=== PATIENT | female | born 1975 | race Caucasian/White ===

== ENCOUNTER → 2017-07-09 | Outpatient (CLI) | payer MEDICAID | LOC: FIMAGING 10:42 | PROVIDERS: ATTEND Obstetrics & Gynecology | DX: O09.521 Supervision of elderly multigravida, first trimester (principal); Z3A.12 12 weeks gestation of pregnancy ==

== ENCOUNTER → 2017-08-05 | Outpatient (CLI) | payer MEDICAID | LOC: FIMAGING 09:20 | PROVIDERS: ATTEND Obstetrics & Gynecology Maternal & Fetal Medicine | PROC: 10903ZU Drainage of Amniotic Fluid, Diagnostic from Products of Conception, Percutaneous Approach (ICD-10-PCS; principal; 2017-08-05) | DX: O09.522 Supervision of elderly multigravida, second trimester (principal); Z3A.16 16 weeks gestation of pregnancy | CPT/HCPCS: 82106-90 ==

== ENCOUNTER → 2017-09-17 | Outpatient (CLI) | payer MEDICAID | LOC: FIMAGING 09:56 | PROVIDERS: ATTEND Obstetrics & Gynecology | DX: O09.522 Supervision of elderly multigravida, second trimester (principal); Z3A.22 22 weeks gestation of pregnancy ==

== ENCOUNTER 2018-01-19 08:00 | Inpatient (IN) | payer MEDICAID ==
[2018-01-19] MEDS ORDERED: TERBUTALINE SULFATE 1 MG/ML VIAL ONE (12:36)
[2018-01-19] MEDS ORDERED: LIDOCAINE 1% 300 MG/30 ML SDV ONE (12:36)
[2018-01-19] MEDS ORDERED: AMMONIA AROMATIC 1 EACH AMP IH ONE (12:36)
[2018-01-19] MEDS ORDERED: OLIVE OIL 118 ML BTL ONE (12:36)
[2018-01-19] MEDS ORDERED: OXYTOCIN 10 UNIT/ML VIAL ONE (12:37)
[2018-01-19] MEDS ORDERED: OXYTOCIN 20 UNIT in LR 1,000 ML IV ONE (12:37)
[2018-01-19] MEDS ORDERED: MISOPROSTOL 200 MCG TAB ONE (12:37)
[2018-01-19] MEDS ORDERED: OXYTOCIN/RINGERS LACTATE 1,000 ML IV PRN (13:53)
[2018-01-19] MEDS ORDERED: AMMONIA AROMATIC 1 EACH AMP IH PRN (13:53)
[2018-01-19] MEDS ORDERED: LIDOCAINE 1% 300 MG/30 ML SDV SC PRN (13:53)
[2018-01-19] MEDS ORDERED: EPSOM SALT 454 GM TP PRN (13:53)
[2018-01-19] MEDS ORDERED: MISOPROSTOL 200 MCG TAB PO PRN (13:53)
[2018-01-19] MEDS ORDERED: OLIVE OIL 118 ML BTL MISC PRN (13:53)
[2018-01-19] MEDS ORDERED: IBUPROFEN 600 MG TAB PO PRN (13:53)
[2018-01-19] MEDS ORDERED: TERBUTALINE SULFATE 1 MG/ML VIAL IV PRN (13:53)
[2018-01-19] MEDS ORDERED: OXYTOCIN 10 UNIT/ML VIAL IM ONE (13:56)
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
--- NOTE | 2018-01-19 20:18 | OBPROG ---
Labor Progress Note Assessment/Plan: Assessment: FHT's 130-140's without decels noted. Protracted labor pattern; inadequate contractions Plan: Reviewed options including ambulating, nipple stimulation, change of scenery, AROM, pt asked about pain medication, and medication to augment labor. Pt would plans to go outside to walk and try other tricks to augment labor. May consider AROM if not effective. Strongly desires avoiding medical intervention if at all possible. 01/19/18 20:15 Subjective/Intrapartum Course: 01/19/18 1715 Contractions have spaced out and are not as strong. Pt was able to rest. Requesting VE Objective: Cervix very soft and stretchy; BBOW present. - SVE Dilation (cm): 8 Effacement (%): 100 Station: -1 Membranes: Intact - Contraction Pattern Assessment Current Contraction Pattern: Irregular Oxytocin Orders Assessment - Pre-Induction/Augmentation Assessment Gestational Age: 40 week(s) and 3 day(s) ICD10 Worksheet Patient Problems: Problems Problem Status Onset Advanced maternal age in multigravida Acute Prolonged labor Acute - ICD10 Problem Qualifiers (1) Prolonged labor (2) Advanced maternal age in multigravida Qualifiers: Trimester: unspecified trimester Qualified Code(s): O09.529 - Supervision of elderly multigravida, unspecified trimester
[2018-01-20 00:17] LABS: PLATELET COUNT 166 10^3/uL (150-400)
--- NOTE | 2018-01-20 00:18 | OBPROG ---
Labor Progress Note Assessment/Plan: Assessment: FHT's 130-140's without decels noted. Protracted labor pattern; inadequate contractions Protracted labor; inadequate contractions. FHT 130-140's Plan: Reviewed options including ambulating, nipple stimulation, change of scenery, AROM, pt asked about pain medication, and medication to augment labor. Pt would plans to go outside to walk and try other tricks to augment labor. May consider AROM if not effective. Strongly desires avoiding medical intervention if at all possible. 01/19/18 20:15 01/20/18 00:16 1) Pt would like to proceed with epidural and pitocin augmentation. Reviewed all risks versus benefits of proceeding including what the procedure entailed. 2) Dr Ruiz updated regarding status prior and agreed that the plan to augment prior to deciding to move to csection Subjective/Intrapartum Course: 01/19/18 1715 Contractions have spaced out and are not as strong. Pt was able to rest. Requesting VE 01/20/18 00:14 Contractions have strength and frequency have spaced out and pt had requested help. After assessing and finding cervix present again and ant lip reviewed options including continuing; getting an epidural and starting pitocin augmentation, or proceeding to a csection. She requested time to talk with her support people. - SVE Dilation (cm): 8 Effacement (%): 100 Station: -2 Membranes: AROM Amniotic Fluid Color: Clear - Contraction Pattern Assessment Current Contraction Pattern: Irregular Oxytocin Orders Assessment - Pre-Induction/Augmentation Assessment Gestational Age: 40 week(s) and 3 day(s) ICD10 Worksheet Patient Problems: Problems Problem Status Onset Advanced maternal age in multigravida Acute Prolonged labor Acute - ICD10 Problem Qualifiers (1) Prolonged labor (2) Advanced maternal age in multigravida Qualifiers: Trimester: unspecified trimester Qualified Code(s): O09.529 - Supervision of elderly multigravida, unspecified trimester
[2018-01-20] MEDS: LR 1,000 ML IV PRN ×2 (00:24→02:23)
[2018-01-20] MEDS ORDERED: BUPIVACAINE 0.25% 30 ML SDV ONE (00:40)
[2018-01-20] MEDS ORDERED: PHENYLEPHRINE HCL 100 MCG/ML SYR ONE (00:40)
--- NOTE | 2018-01-20 00:43 | PREANESOB ---
Obstetric Pre-Anesthesia Info - General Info Proposed Procedure: ÁNGEL : 2 Para: 0 STUART: 01/16/18 Gestational Age: 40 week(s) and 3 day(s) - Info Status: Full Term FHR Pattern: Reassuring - Labor Status Cervical Dilation per last OB SVE: 9 Station per last OB SVE: -2 Amniotic Fluid Color: Clear Pitocin: In Use Indications for Labor Analgesia: Pain Control Labor Epidural: Proposed Anesthesia Allergies/Adverse Reactions: Allergy/AdvReac Type Severity Reaction Status Date / Time acetaminophen [From Vicodin] Allergy Mild Verified 01/19/18 09:12 hydrocodone [From Vicodin] Allergy Mild Verified 01/19/18 09:12 Penicillins Allergy Unknown Verified 01/19/18 09:12 Home Medications: Medication Instructions Recorded Acyclovir [Zovirax 200 mg (*)] 200 mg PO PRN 01/19/18 Ferrous Sulfate [Iron] 325 mg PO DAILY 01/19/18 Dha 1 tab PO DAILY 01/19/18 Visit Medications: Generic Name Dose Route Start Last Admin Trade Name Derrickq PRN Reason Stop Dose Admin Ammonia (Aromatic Spirit) 1 each 01/19/18 13:53 Ammonia Aromatic IH 01/29/18 13:52 ONCE PRN Fainting Lactated Ringer's 1,000 mls @ 0 mls/hr 01/19/18 13:53 01/20/18 00:24 Lr IV 01/20/18 13:52 1,000 mls PRN PRN Administration SEE PROTOCOL CONDITIONS Protocol Per Protocol Oxytocin/Lactated Ringer's 1,000 mls @ 0 mls/hr 01/19/18 13:53 Pitocin 20 Units/Lr (Premix) IV PRN PRN Post bleeding As Directed Ibuprofen 600 mg 01/19/18 13:53 Motrin PO ONCE PRN post , pain Lidocaine HCl 300 mg 01/19/18 13:53 Lidocaine Hcl 1% SC 07/18/18 13:52 ONCE PRN episiotomy Magnesium Sulfate 454 gm 01/19/18 13:53 Epsom Salt TP 07/18/18 13:52 Q1H PRN perineal discomfort Misoprostol 800 - 1,000 mcg 01/19/18 13:53 Cytotec PO 07/18/18 13:52 ONCE PRN Vaginal Atony/Bleeding [place] Oil 118 ml 01/19/18 13:53 Sweet Oil MISC 07/18/18 13:52 ONCE PRN perineal massage Terbutaline Sulfate 0.25 mg 01/19/18 13:53 Brethine IV 07/18/18 13:52 ONCE PRN Tachysystole Discontinued Medications Generic Name Dose Route Start Last Admin Trade Name Jamaal PRN Reason Stop Dose Admin Ammonia (Aromatic Spirit) Confirm 01/19/18 12:36 Ammonia Aromatic Administered 01/19/18 12:37 Dose 1 each IH .STK-MED ONE Bupivacaine HCl Confirm 01/20/18 00:40 Sensorcaine 0.25% Sdv Administered 01/20/18 00:41 Dose 30 ml .ROUTE .STK-MED ONE Lidocaine HCl Confirm 01/19/18 12:36 Lidocaine Hcl 1% Administered 01/19/18 12:37 Dose 300 mg .ROUTE .STK-MED ONE Misoprostol Confirm 01/19/18 12:37 Cytotec Administered 01/19/18 12:38 Dose 1,000 mcg .ROUTE .STK-MED ONE [place] Oil Confirm 01/19/18 12:36 Sweet Oil Administered 01/19/18 12:37 Dose 118 ml .ROUTE .STK-MED ONE Oxytocin Confirm 01/19/18 12:37 Pitocin Administered 01/19/18 12:38 Dose 40 unit .ROUTE .STK-MED ONE Oxytocin 10 unit 01/19/18 13:56 Pitocin IM 01/19/18 13:57 ONCE ONE Phenylephrine HCl Confirm 01/20/18 00:40 Neosynephrine Administered 01/20/18 00:41 Dose 1,000 mcg .ROUTE .STK-MED ONE Terbutaline Sulfate Confirm 01/19/18 12:36 Brethine Administered 01/19/18 12:37 Dose 1 mg .ROUTE .STK-MED ONE - Vital Signs Height/Weight (Nursing): Height 165.1 cm Weight 68.039 kg Labs: 01/19/18 13:53
[2018-01-20] MEDS ORDERED: OXYTOCIN 10 UNIT/ML VIAL IV ONE (01:21)
--- NOTE | 2018-01-20 01:51 | OBDEL ---
Info Type: Vaginal Presentation at Delivery: Vertex L&D Analgesia/Anesthesia Type: None GBS+: No Intrapartum Medications: Generic Name Dose Route Start Last Admin Trade Name Freq PRN Reason Stop Dose Admin Lactated Ringer's 1,000 mls @ 0 mls/hr 01/19/18 13:53 01/20/18 00:24 Lr IV 01/20/18 13:52 1,000 mls PRN PRN Administration SEE PROTOCOL CONDITIONS Protocol Per Protocol Lidocaine HCl 300 mg 01/19/18 13:53 01/20/18 01:39 Lidocaine Hcl 1% SC 07/18/18 13:52 300 mg ONCE PRN Administration episiotomy Discontinued Medications Generic Name Dose Route Start Last Admin Trade Name Freq PRN Reason Stop Dose Admin Oxytocin 20 unit/ Lactated 1,002 mls @ 150 mls/hr 01/19/18 12:37 01/20/18 01: 15 Ringer's IV 01/19/18 19:17 1,002 mls ONCE ONE Administration - Hospital Course Intrapartum: 01/19/18 1715 Contractions have spaced out and are not as strong. Pt was able to rest. Requesting VE 01/20/18 00:14 Contractions have strength and frequency have spaced out and pt had requested help. After assessing and finding cervix present again and ant lip reviewed options including continuing; getting an epidural and starting pitocin augmentation, or proceeding to a csection. She requested time to talk with her support people. Indications for Delivery: Spontaneous Labor Vaginal Delivery - Delivery Provider Delivery Physician/CNM: Elvia Price - Labor and Delivery Onset of Contractions Date: 01/18/18 Onset of Contractions Time: 21:00 Onset of Contractions Type: Spontaneous Rupture of Membranes Date: 01/19/18 Rupture of Membranes Time: 20:45 Rupture of Membranes Type: Artificial Amniotic Fluid Color: Clear Dilation Complete Date: 01/20/18 Dilation Complete Time: 00:54 Placenta Delivery Date: 01/20/18 Placenta Delivery Time: 01:12 Total Hours of Labor: 28 Laceration: 2nd Degree Repair: 3-0, Vicryl Vaginal Sponge Count Correct: Yes Vaginal Needle Count Correct: Yes Vaginal Sweep Performed: Yes EBL: [address] [place] Data STUART: 01/16/18 Gestational Age: 40 week(s) and 4 day(s) [place] Delivery Date: 01/20/18 Delivery Time: 00:57 Sex of : Male Score (1 Min): 8 Score (5 Min): 8 ICD10 Worksheet Patient Problems: Problems Problem Status Onset Advanced maternal age in multigravida Acute Prolonged labor Acute (spontaneous vaginal delivery) Acute Second degree perineal laceration Acute - ICD10 Problem Qualifiers (1) (spontaneous vaginal delivery) (2) Second degree perineal laceration
[2018-01-20] MEDS ORDERED: DOCUSATE SODIUM 100 MG CAP PO PRN (02:16)
[2018-01-20] MEDS ORDERED: HYDROCORTISONE 0.5% CREAM TP PRN (02:16)
[2018-01-20] MEDS ORDERED: SIMETHICONE 80 MG TAB CHEW PO PRN (02:16)
[2018-01-20] MEDS: IBUPROFEN 600 MG TAB PO SCH ×3 (02:22→18:42)
[2018-01-20] MEDS: ACETAMINOPHEN 325 MG TAB PO SCH ×4 (02:39→22:09)
[2018-01-21] MEDS: IBUPROFEN 600 MG TAB PO SCH ×3 (02:46→17:34)
[2018-01-21] MEDS: ACETAMINOPHEN 325 MG TAB PO SCH ×3 (02:47→17:34)
[2018-01-21 09:04] VITALS: BP 96/64
--- NOTE | 2018-01-21 10:36 | OBPP ---
Progress Note Assessment/Plan: Assessment: 1. 2. PP day 1 3. Breast feeding good. Plan: 1. D/C home today. 01/21/18 10:34 Subjective/ Course: 01/21/18 10:35 Breast feeding fair, ambulating independently, voiding well. Pain controlled with PO medications. Plan d/c home today. Objective: 01/20/18 15:45 Patient ABO/Rh A NEGATIVE 01/20/18 02:47 Temp Pulse Resp BP Pulse Ox 36.6 C 76 17 96/64 L 96 01/21/18 08:00 01/21/18 08:00 01/21/18 08:00 01/21/18 08:00 01/21/18 08:00 VSS Uterine Position/Fundal Height: At Umbilicus Uterine Tone: Firm
[2018-01-21] MEDS ORDERED: HYDROCORTISONE 2.5% 30 GM CRTUBE TP SCH (21:00)
--- NOTE | 2018-01-24 13:35 | OBGCSDC ---
General Delivery Information - General Info : 2 Para: 1 Abortions: 0 Type: Vaginal L&D Analgesia/Anesthesia Type: None Admission Date: 01/19/18 Labs: Patient ABO/Rh A NEGATIVE 01/20/18 02:47 Hct 25.4 % (38.0-47.0) L 01/20/18 15:45 - Hospital Course Intrapartum: 01/19/18 1715 Contractions have spaced out and are not as strong. Pt was able to rest. Requesting VE 01/20/18 00:14 Contractions have strength and frequency have spaced out and pt had requested help. After assessing and finding cervix present again and ant lip reviewed options including continuing; getting an epidural and starting pitocin augmentation, or proceeding to a csection. She requested time to talk with her support people. : 01/21/18 10:35 Breast feeding fair, ambulating independently, voiding well. Pain controlled with PO medications. Plan d/c home today. Vaginal - Delivery Provider Delivery Physician/CNM: Elvia Price - Diagnosis Labor: Spontaneous Rupture of Membranes Type: Artificial Amniotic Fluid Color: Clear Laceration: 2nd Degree Repair: 3-0, Vicryl - Delivery EBL: [address] [place] Data STUART: 01/16/18 Gestational Age: 41 week(s) and 1 day(s) [place] Delivery Date: 01/20/18 Delivery Time: 00:57 Sex of : Male Score (1 Min): 8 Score (5 Min): 8 Discharge Information - Discharge Information Prescriptions: Hydrocortisone 2.5% [Hydrocortisone 2.5% cream (*)] 1 zak TP BID 10 Days #1 cream Condition: Good Instruction/Follow Up: Two Weeks, Four Weeks, Six Weeks
== END 2018-01-21 15:00 | disposition home or self-care (01) | DRG 560 ==
LOC: FLD 08:00 → OBSVTOIN 13:57 → FOB 01-20 04:00
PROVIDERS: ADMIT Advanced Practice Midwife; ATTEND Advanced Practice Midwife
PROC: 0KQM0ZZ Repair Perineum Muscle, Open Approach (ICD-10-PCS; principal; 2018-01-20)
PROC: 10907ZC Drainage of Amniotic Fluid, Therapeutic from Products of Conception, Via Natural or Artificial Opening (ICD-10-PCS; principal; 2018-01-20)
PROC: 10E0XZZ Delivery of Products of Conception, External Approach (ICD-10-PCS; principal; 2018-01-20)
DX: O63.9 Long labor, unspecified (principal); D64.9 Anemia, unspecified; O70.1 Second degree perineal laceration during delivery; O99.02 Anemia complicating childbirth; Z37.0 Single live birth; Z3A.40 40 weeks gestation of pregnancy
CPT/HCPCS: J2370; J2590; J3105